=== PATIENT | male | born 1975 | race Asian ===

== ENCOUNTER 2020-09-19 10:48 | Emergency (ER) | payer BC, OTHER ==
[~2020-09-19] VITALS: Ht 154.9 cm; Wt 74.8 kg
[2020-09-19] MEDS ORDERED: ACETAMINOPHEN 325 MG TAB PO ONE (13:00)
[2020-09-19 13:55] VITALS: BP 132/82
== END 2020-09-19 14:40 | disposition home or self-care (01) ==
LOC: ER 10:48 → EDBD 10:48 → ER 14:40
DX: S13.9XXA Sprain of joints and ligaments of unspecified parts of neck, initial encounter (principal); S53.402A Unspecified sprain of left elbow, initial encounter; M54.6 Pain in thoracic spine; V49.9XXA Car occupant (driver) (passenger) injured in unspecified traffic accident, initial encounter; Y93.89 Activity, other specified; Y92.89 Other specified places as the place of occurrence of the external cause; Y99.8 Other external cause status
CPT/HCPCS: 70450; 71250; 72125; 72128; 72131; 73080; 73090; 73110; 73130